=== PATIENT | female | born 1955 | race Caucasian/White ===

== ENCOUNTER 2019-10-25 11:59 | Outpatient (CLI) | payer MEDICAID ==
[2019-10-25] MEDS ORDERED: IOVERSOL 320 100 ML VIAL IVP ONE (12:49)
[2019-10-25 12:55] LABS: CREATININE 0.6 mg/dL (0.4-1.0)
[2019-10-25] MEDS: IOVERSOL 320 100 ML VIAL IVP ONE (13:17)
--- NOTE | 2019-10-26 09:04 | CT Report ---
Reason: MICROSCOPIC HEMATURIA Procedure Date: 10/25/2019 Accession Number: [id number] / [id number] Procedure: CT - IVP CPT Code: Final Report FULL RESULT: EXAM: CT ABDOMEN AND PELVIS WITHOUT AND WITH CONTRAST (CT IVP) EXAM DATE: 10/25/2019 01:25 PM. CLINICAL HISTORY: Microscopic hematuria. COMPARISONS: None. TECHNIQUE: Routine helical imaging was performed through the kidneys, ureters and bladder in the precontrast, postcontrast and delayed phase. IV Contrast: 100 mL Optiray 320. Reconstructions: Coronal and sagittal. In accordance with CT protocol optimization, one or more of the following dose reduction techniques were utilized for this exam: automated exposure control, adjustment of mA and/or KV based on patient size, or use of iterative reconstructive technique. FINDINGS: Lung Bases: Unremarkable. Liver: Normal. No masses. Gallbladder/Bile Ducts: Subcentimeter stones within contracted gallbladder. Spleen: Normal. Pancreas: Normal. Adrenal Glands: Normal. Kidneys/Bladder: Right Kidney/Ureter: No renal or ureteral stones. No hydronephrosis or hydroureter. No masses. Left Kidney/Ureter: No renal or ureteral stones. No hydronephrosis or hydroureter. Two 1 cm cysts. Bladder: No stones. No wall thickening or mass. Peritoneal Cavity/Bowel: Normal. No free fluid, free air or adenopathy. No masses or acute inflammatory process. Pelvic Organs: Visualized pelvic organs are unremarkable. Vasculature: No aneurysms. Moderately heavy mural calcification of the abdominal aorta. Bones: No significant abnormality. Other: None. IMPRESSION: No urinary tract masses, stones or obstruction. Two left renal cysts. [facility]
== END 2019-10-25 12:00 | disposition home or self-care (01) ==
LOC: DI 11:59
PROVIDERS: ATTEND Family Medicine
DX: R31.29 Other microscopic hematuria (principal); R31.21 Asymptomatic microscopic hematuria; Q61.02 Congenital multiple renal cysts
CPT/HCPCS: 36415; 74178; 82565; Q9967